=== PATIENT | female | born 1985 | race African-American/Black ===

== ENCOUNTER 2019-01-12 14:21 | Emergency (ER) | payer SELFPAY ==
[~2019-01-12] VITALS: Ht 175.3 cm; Wt 163.3 kg
[2019-01-12 14:24] VITALS: Ht 175.3 cm; Wt 163.3 kg
[2019-01-12 16:32] VITALS: BP 110/63
== END 2019-01-12 16:32 | disposition home or self-care (01) ==
LOC: ED 14:21
DX: S93.402A Sprain of unspecified ligament of left ankle, initial encounter (principal); S80.812A Abrasion, left lower leg, initial encounter; G89.29 Other chronic pain; Z88.0 Allergy status to penicillin; V98.8XXA Other specified transport accidents, initial encounter; Y93.89 Activity, other specified; Y92.89 Other specified places as the place of occurrence of the external cause; Y99.8 Other external cause status
CPT/HCPCS: J3010